=== PATIENT | female | born 1995 | race Caucasian/White ===

== ENCOUNTER 2020-08-08 11:24 | Inpatient (IN) | payer OTHER ==
[2020-08-08] MEDS ORDERED: Ibuprofen 800 MG TAB PO PRN (12:37)
[2020-08-08] MEDS ORDERED: Promethazine HCl 25 MG/ML VIAL IM PRN ×2 (12:37→22:41)
[2020-08-08] MEDS ORDERED: Ondansetron PF 4 MG/2 ML Vial IVP PRN ×2 (12:37→22:41)
[2020-08-08] MEDS ORDERED: Lidocaine 1% (PF) 30 ML VIAL SC PRN (12:37)
[2020-08-08] MEDS ORDERED: Diphenoxylate HCl/Atropine Tablet PO PRN (12:37)
[2020-08-08] MEDS ORDERED: Butorphanol Tartrate 1 MG/ML VIAL SLOW IVP PRN (12:37)
[2020-08-08] MEDS ORDERED: Carboprost 250 MCG/ML AMP IM PRN (12:37)
[2020-08-08] MEDS ORDERED: hydrALAZINE 20 MG/ML VIAL SLOW IVP PRN (12:37)
[2020-08-08] MEDS ORDERED: Methylergonovine 0.2 MG/ML VIAL IM PRN (12:37)
[2020-08-08] MEDS ORDERED: Misoprostol 200 MCG TAB PR PRN (12:37)
[2020-08-08] MEDS ORDERED: HYDROcodone/Acetaminophen 5/325 mg Tablet PO PRN (12:37)
[2020-08-08] MEDS ORDERED: NS / Oxytocin 40 units/1000ml 1,000 ML IV PRN (12:37)
[2020-08-08] MEDS ORDERED: Lactated Ringer's 1,000 ML IV SCH (12:45)
[2020-08-08 12:52] LABS: Hemoglobin 10.6 g/dL (12.0-15.5); Mean Corpuscular HGB CONC 32.4 g/dL (32.0-36.0); Mean Corpuscular Hemoglobin 29.5 pg (27.0-33.0); Mean Corpuscular Volume 91.1 fl (81.6-98.3); Mean Platelet Volume 9.9 fl (7.4-10.4); Platelet Count 212 10x3/uL (150-450); RBC Distribution Width 13.9 % (11.5-14.5); Red Blood Cell (RBC) Count 3.59 10x6/uL (3.90-5.03); White Blood Cell (WBC) Count 11.7 10x3/uL (3.5-10.5)
[2020-08-08 12:59] VITALS: BMI 31.6
[2020-08-08] MEDS: Misoprostol 100 MCG TAB PO SCH (13:22)
[2020-08-08 13:42] LABS: Syphilis Antibody Nonreactive (Nonreactive); Syphilis Antibody Index 0.04 S/CO (<1.00 Non-Reactive)
[2020-08-08 13:43] LABS: Hep B Surf Ag Non-Reactive S/CO (NonReactive)
[2020-08-08 13:44] LABS: HBSAg Index 0.17 S/CO (0-0.99)
[2020-08-08] MEDS ORDERED: NS w/ Oxytocin 30 units 500 ML ONE (17:56)
[2020-08-08] MEDS ORDERED: Fentanyl 4 mcg/Bup 0.1% Cadd 100 ML ONE (20:24)
[2020-08-08] MEDS ORDERED: Ondansetron PF 4 MG/2 ML Vial ONE (22:28)
[2020-08-08] MEDS ORDERED: PHENYLEPHRINE-NS 100 MCG/ML 10 ML SYRINGE ONE (22:36)
[2020-08-08] MEDS ORDERED: Naloxone HCl 0.4 mg/ml Vial IVP PRN ×2 (22:41)
[2020-08-08] MEDS ORDERED: Lactated Ringer's 500 ML IV PRN (22:41)
[2020-08-08] MEDS ORDERED: Acetaminophen 325 MG TAB PO PRN (22:41)
[2020-08-08] MEDS ORDERED: diphenhydrAMINE 50 MG/ML VIAL IVP PRN (22:41)
[2020-08-08] MEDS ORDERED: ePHEDrine 50 MG/ML VIAL SLOW IVP PRN (22:41)
[2020-08-08] MEDS ORDERED: Fentanyl 4 mcg/Bupivacaine 0.1% Cassette 100 ML EPIDURAL SCH (22:45)
[2020-08-08] MEDS ORDERED: Communication Order-Pharmacy FS SCH (22:45)
[2020-08-09] MEDS: Misoprostol 100 MCG TAB PO SCH (04:21)
[2020-08-09 04:28] LABS: SARS-CoV-2 PCR by NAA Not Detected (NotDetected)
[2020-08-09] MEDS ORDERED: Fentanyl 4 mcg/Bup 0.1% Cadd 100 ML ONE (05:30)
[2020-08-09] MEDS ORDERED: Famotidine/PF 20 mg/2ml Vial SLOW IVP PRN (07:48)
[2020-08-09] MEDS ORDERED: Bicitra 30 ML UDCUP PO PRN (07:48)
[2020-08-09] MEDS ORDERED: CEFAZOLIN 2 GM in Premix Bag 1 BAG IVPB SCH (08:00)
[2020-08-09] MEDS ORDERED: Azithromycin 500 MG in Sodium Chloride 0.9% 250 ML 250 ML IVPB SCH (08:00)
[2020-08-09] MEDS ORDERED: NS w/ Oxytocin 30 units 500 ML ONE (09:18)
[2020-08-09] MEDS ORDERED: Lidocaine 1% (PF) 30 ML VIAL ONE (09:19)
[2020-08-09] MEDS ORDERED: Misoprostol 200 MCG TAB ONE (09:54)
[2020-08-09 10:41] LABS: Actual Bicarbonate (HCO3a) 20.1 mEq/L (22-28); Base Excess (BEa) -7.8 mEq/L (-2.0 to +3.0); CO2 Tension 49.9 mmHg (35.0-45.0); O2 Tension (PaO2), arterial 26.8 mmHg (80.0-100.0); pH, Arterial 7.22 (7.35-7.45)
[2020-08-09 10:42] LABS: ALV-art Gradient 60.555 mmHg (0-20); RapidComm Collect By NURSE; pH (Cord, venous) 7.271 (7.250-7.350)
[2020-08-09] MEDS ORDERED: Bisacodyl 10 MG SUPP PR PRN (14:24)
[2020-08-09] MEDS ORDERED: diphenhydrAMINE 25 MG CAP PO PRN (14:24)
[2020-08-09] MEDS ORDERED: Preparation H Ointment 28 GM TUBE PR PRN (14:24)
[2020-08-09] MEDS ORDERED: Lanolin Ointment 7 GM TUBE TOP PRN (14:24)
[2020-08-09] MEDS ORDERED: Promethazine HCl 25 MG/ML VIAL IM PRN (14:24)
[2020-08-09] MEDS ORDERED: Benzocaine-Menthol 82.5 ML CAN TOP PRN (14:24)
[2020-08-09] MEDS ORDERED: Ondansetron PF 4 MG/2 ML Vial IVP PRN (14:24)
[2020-08-09] MEDS ORDERED: hydrALAZINE 20 MG/ML VIAL SLOW IVP PRN (14:24)
[2020-08-09] MEDS ORDERED: HYDROcodone/Acetaminophen 5/325 mg Tablet PO PRN (14:24)
[2020-08-09] MEDS ORDERED: Milk Of Magnesia 30 ML UDCUP PO PRN (14:24)
[2020-08-09] MEDS ORDERED: Adacel (T-DAP) 0.5 ML SYRINGE IM ONE (14:24)
[2020-08-09] MEDS ORDERED: NS w/ Oxytocin 30 units 500 ML IVPB SCH (14:45)
[2020-08-09] MEDS: Ferrous Sulfate 325 MG TAB PO SCH (17:43)
[2020-08-09] MEDS: HYDROcodone/Acetaminophen 5/325 mg Tablet PO PRN (20:20)
[2020-08-09] MEDS: Docusate Calcium (SURFAK) 240 MG CAP PO SCH (20:20)
[2020-08-09] MEDS: Ibuprofen 800 MG TAB PO SCH (20:21)
[2020-08-10] MEDS: Ibuprofen 800 MG TAB PO SCH ×3 (05:54→21:56)
[2020-08-10] MEDS: Docusate Calcium (SURFAK) 240 MG CAP PO SCH ×2 (08:31→21:56)
[2020-08-10] MEDS: Prenatal Vitamin 1 TAB PO SCH (08:31)
[2020-08-10] MEDS: Ferrous Sulfate 325 MG TAB PO SCH ×2 (08:31→17:25)
[2020-08-10] MEDS: HYDROcodone/Acetaminophen 5/325 mg Tablet PO PRN (21:56)
[2020-08-11] MEDS: Ibuprofen 800 MG TAB PO SCH (06:01)
[2020-08-11] MEDS: Docusate Calcium (SURFAK) 240 MG CAP PO SCH (11:02)
[2020-08-11] MEDS: Prenatal Vitamin 1 TAB PO SCH (11:02)
[2020-08-11] MEDS: Ferrous Sulfate 325 MG TAB PO SCH (11:03)
[2020-08-11 11:30] VITALS: BP 115/57; TEMP 97.6
== END 2020-08-11 12:00 | disposition home or self-care (01) | DRG 806 ==
LOC: CSHLD/OP 11:24 → CSHLD 19:18 → CSHPED 08-09 14:50
PROVIDERS: ADMIT Family Medicine; ATTEND Family Medicine
PROC: 10D07Z6 Extraction of Products of Conception, Vacuum, Via Natural or Artificial Opening (ICD-10-PCS; principal; 2020-08-09)
PROC: 0UQMXZZ Repair Vulva, External Approach (ICD-10-PCS; 2020-08-09)
PROC: 0UQGXZZ Repair Vagina, External Approach (ICD-10-PCS; 2020-08-09)
DX: O42.02 Full-term premature rupture of membranes, onset of labor within 24 hours of rupture (principal); O71.4 Obstetric high vaginal laceration alone; Z37.0 Single live birth; Z3A.39 39 weeks gestation of pregnancy; O66.5 Attempted application of vacuum extractor and forceps; O76 Abnormality in fetal heart rate and rhythm complicating labor and delivery; O70.0 First degree perineal laceration during delivery; Z20.822 Contact with and (suspected) exposure to COVID-19
CPT/HCPCS: 36415; 51702; 82805; 85027; 86780; 86850; 86900; 86901; 87340; 87635; 99285; J2405; J2590; U0003; U0005